=== PATIENT | male | born 1970 | race Caucasian/White ===

== ENCOUNTER 2024-04-17 11:34 | Emergency (ER) | payer BC, SELFPAY ==
[2024-04-17 11:42] VITALS: BP 173/92; PULSE 54; RESP 18; TEMP 37.7; O2SAT 54; BMI 34.7
[2024-04-17 12:53] LABS: Appearance Urine Clear (Clear); Bilirubin Urine Negative (Negative); Blood Urine 3+ (Negative); Color Urine Yellow (Yellow); Glucose Urine 2+ (Negative); Ketones Urine 2+ (Negative); Leukocyte Esterase Urine Negative (Negative); Nitrite Urine Negative (Negative); Protein Urine Negative (Negative); Specific Gravity Urine 1.015 (1.000-1.030); Urobilinogen Urine 0.2 (0.2-1.0); pH Urine 5.5 (5.0-8.5)
[2024-04-17 13:15] LABS: Squamous Epithelial Cell Urine Few (None-Few); WBC Urine 0-2 (0-5)
--- NOTE | 2024-04-17 13:38 | ED.GENADULT ---
HPI - General Adult General Date Seen: 04/17/24 Chief complaint: Abdominal Pain Stated complaint: abdominal pain Time Seen by Provider: 04/17/24 11:41 Source: patient Mode of arrival: ambulatory Limitations: no limitations History of Present Illness HPI narrative: Patient is a 54 year old, generally healthy middle-aged man who presents for evaluation of sudden onset of right lower quadrant pain this morning. He says he was getting in his [place] to [place], when he had onset of pretty severe right lower quadrant pain. This was colicky, he could not get comfortable, finally decided it was bad enough he should get it checked out before he continued [place]. He has not noted any hematuria or other urinary symptoms. He has had normal appetite today, had some nausea when the pain was severe but has not vomited. No diarrhea, black or bloody stools. No abdominal surgeries. General health is good, denies medications. Does not smoke, has a beer every few weeks. He does note that pain has markedly improved, he is not pain-free now but says that he has almost no pain. Related Data Allergies Allergy/AdvReac Type Severity Reaction Status Date / Time No Known Drug Allergies Allergy Verified 04/17/24 11:42 Review of Systems Status of ROS: Reports: 10 or more systems reviewed and unremarkable except as noted in History and below Exam Narrative: Exam Narrative: Vital signs as noted above. In general, an alert, well-appearing patient. Head: Normocephalic, atraumatic. Eyes: Pupils are equal reactive. Extraocular movements are full. Conjunctivae are normal. ENT: Mucous membranes are moist. Throat is normal. Neck: Supple without lymphadenopathy. Heart: Regular rate and rhythm. No murmur or rub. Lungs: Clear bilaterally. No increased work of breathing, crackles or wheezes. Abdomen: Soft and nontender. Specifically, no right lower quadrant tenderness, negative Rubin sign, no rebound guarding or rigidity. Extremities: Well perfused. No edema. No calf tenderness. Pulses intact. Neurologic: Patient is alert and oriented to person and place. Speech is fluent. Face is symmetric. Moves all extremities equally. Affect: Normal. Skin: Warm and dry. Well perfused. Const: Vital Signs, click to edit/add: Vital Signs - 24 hr 04/17/24 11:42 Temperature 99.8 F H Pulse Rate [Pulse Oximeter] 54 L Respiratory Rate 18 Blood Pressure [Ri ght Upper Arm] 173/92 H Pulse Oximetry 54 L Documenting provider has reviewed patient's vital signs: yes Course Course ED Course: Because patient was feeling better, he was hesitant to undergo much workup today. Did tell him that he certainly could have a kidney stone, CT scan would be an option to look for stone and to evaluate for I think the less likely diagnoses of appendicitis, diverticulitis, colitis. Ultimately, he did agree to do urinalysis but did not want to have any other testing done at this time. Actually did not want await for results of the urinalysis either, so he was discharged prior to those with instructions to be seen again for persistent pain and be seen right away for severe pain, of fevers, chills, vomiting etcetera. I did talk with him by phone about the urinalysis which shows 3+ blood, 2-5 red cells. He also has 2+ glucose. I have relayed all this to him. [place], recommended that he check in with his primary doctor when he gets back and have a hemoglobin A1c done. He does say couple of years ago he was told that his blood sugars were may be running high. Has not had any other symptoms of hyperglycemia and I have no reason at this time to suspect that he is in DKA. If he is feeling worse he should be seen again more promptly. Likewise, he will follow up with primary care if abdominal pain is not resolving over the next week. Discussed that if he does have a kidney stone he may have recurrent severe pain, he can try ibuprofen but should be seen if pain does not improve. Vital Signs Vital signs: Initial Vital Signs Temperature 99.8 F H 04/17/24 11:42 Temperature Source Temporal Artery Scan 04/17/24 11:42 Pulse Rate 54 L 04/17/24 11:42 Respiratory Rate 18 04/17/24 11:42 Blood Pressure 173/92 H 04/17/24 11:42 Blood Pressure Mean 119 H 04/17/24 11:42 Pulse Oximetry 54 L 04/17/24 11:42 Vital Signs Temperature 99.8 F H 04/17/24 11:42 Pulse Rate 54 L 04/17/24 11:42 Respiratory Rate 18 04/17/24 11:42 Blood Pressure 173/92 H 04/17/24 11:42 Pulse Oximetry 54 L 04/17/24 11:42 Temperature 99.8 F H 04/17/24 11:42 Pulse Rate 54 L 04/17/24 11:42 Respiratory Rate 18 04/17/24 11:42 Blood Pressure 173/92 H 04/17/24 11:42 Pulse Oximetry 54 L 04/17/24 11:42 Medical Decision Making Lab Data Labs: Lab Results 04/17/24 Range/Units 12:37 Urine Color Yellow (Yellow) Urine Appearance Clear (Clear) Urine pH 5.5 (5.0-8.5) Ur Specific [place] 1.015 (1.000-1.030) Urine Protein Negative (Negative) Urine Glucose (UA) 2+ A (Negative) Urine Ketones 2+ A (Negative) Urine Blood 3+ A (Negative) Urine Nitrite Negative (Negative) Urine Bilirubin Negative (Negative) Urine Urobilinogen 0.2 (0.2-1.0) Ur Leukocyte Esterase Negative (Negative) Urine RBC 2-5 A (0-2) Urine WBC 0-2 (0-5) Ur Squamous Epith Cells Few (None-Few) Urine Bacteria None (None) Discharge Plan Discharge Clinical Impression: Abdominal pain Patient Disposition: Home, Self-Care Condition: Improved Instructions: Acute Abdominal Pain (DC) Additional Instructions: We will check the urine for blood or signs of infection. I suspect that he may have a kidney stone, if you do and it has not yet passed you may have recurrence of pain. The urinalysis is markedly abnormal and mask you to come back for further testing. Otherwise, if you have persistent pain, you should be seen again within the next week for recheck and consider imaging. If at any time you have severe uncontrolled pain, vomiting, fevers, chills or other significant worsening, you should be seen right away. Follow Up/Referrals: Kamryn Hernandez PA-C [Primary Care Provider] - Stand Alone Forms: [facility] Info Instructions
== END 2024-04-17 12:59 | disposition home or self-care (01) ==
PROVIDERS: Family Medicine; Emergency Provider Emergency Medicine; PCP Physician Assistant Medical
DX: R10.9 Unspecified abdominal pain (principal)
CPT/HCPCS: 81001; 99282; 99283; 99284